=== PATIENT | female | born 1965 | race Two or more races ===

== ENCOUNTER 2023-04-22 07:55 | Inpatient (IN) | payer OTHER ==
[~2023-04-22] VITALS: Ht 167.6 cm; Wt 97.1 kg
[~2023-04-22 07:55] MED LIST: GLIMEPIRIDE4 MG
[2023-04-22] MEDS ORDERED: TOPROL XL25 M1 (09:08)
[2023-04-22] MEDS ORDERED: FEXMID7.5 MG (09:09)
[2023-04-22 11:01] LABS: HEMATOCRIT 35.5 % (36.0-45.00); HEMOGLOBIN 12.1 g/dL (12.0-15.00); MEAN CORPUSCULAR HEMOGLOBIN 30.8 pg (27.00-32.0); MEAN CORPUSCULAR HGB CONC 34.2 g/dl (32.0-36.0); PLATELET COUNT 154 K/uL (150-450); RED BLOOD COUNT 3.94 M/uL (4.00-6.00); RED CELL DISTRIBUTION WIDTH 13.5 % (11.5-14.5)
[2023-04-22 11:11] LABS: ALBUMIN 2.9 gm/dL (3.4-5.0); BILIRUBIN TOTAL 1.14 mg/dL (0.3-1.2); CALCIUM 9.2 mg/dL (8.5-10.1); CREATININE SERUM 0.71 mg/dL (0.55-1.02); GFR 84.55; GLOBULINA 5.4 G/DL (2.4-3.5); POTASSIUM 3.77 mEq/L (3.5-5.1); TOTAL PROTEIN 8.3 gm/dL (6.4-8.2)
[2023-04-22 12:09] LABS: PH,URINE 5.5 (5.0-8.0); URINE APPEARANCE Cloudy; URINE BILIRRUBIN Negative (NEGATIVE); URINE BLOOD Small; URINE COLOR Yellow; URINE LEUKOCYTE Moderate; URINE NITRATE Negative
[2023-04-22 12:13] LABS: URINE EPITHELIAL CELLS 18.5 uL (0.0-38.8); URINE RBC 8.2 uL (0.0-20.8); URINE WBC 1809.4 uL (0.0-23.2)
[2023-04-22 12:19] LABS: URINE BACTERIA > 9821.5 uL (0.0-1933); URINE GLUCOSE >=1000 MG/DL (NEGATIVE); URINE PROTEIN 100 (NEGATIVE)
[2023-04-22 18:58] LABS: ABG PH 7.465 (7.35-7.45); ABG pCO2 34.3 mmHg (35-45)
[2023-04-22 18:59] LABS: ABG PO2 52.4 mmHg (80-100); BICARBONATE 24.1 mmol/l (23-25); Tco2 25.2 mmol/l; allen test SATISFACTORY; o2 21 %; puncture site RADIAL LEFT
[2023-04-22 22:38] LABS: ABG PO2 118.2 mmHg (80-100); ABG pCO2 39.7 mmHg (35-45); BASE EXCESS 0.1 mmol/l; BICARBONATE 24.6 mmol/l (23-25); SaO2 98.6 %; Tco2 25.8 mmol/l; allen test SATISFACTORY; puncture site RADIAL LEFT
[2023-04-22 22:39] LABS: o2 50 %
[2023-04-22 23:19] LABS: D DIMER 0.88 MG/L; INR 1.2; PARTIAL THROMBOPLASTIN TIME 35.8 SECONDS (22.0-34.0); PROTHROMBIN TIME 12.4 SECONDS (9.0-11.5)
[2023-04-23 15:28] LABS: ALBUMIN 2.4 gm/dL (3.4-5.0); BILIRUBIN TOTAL 0.62 mg/dL (0.3-1.2); CALCIUM 8.5 mg/dL (8.5-10.1); CREATININE SERUM 0.9 mg/dL (0.55-1.02); GFR 64.31; GLOBULINA 4.4 G/DL (2.4-3.5); POTASSIUM 4.03 mEq/L (3.5-5.1); TOTAL PROTEIN 6.8 gm/dL (6.4-8.2)
[2023-04-25 07:18] LABS: HEMATOCRIT 33.8 % (36.0-45.00); HEMOGLOBIN 11.2 g/dL (12.0-15.00); MEAN CELL VOLUME 90.9 fL (80.00-100.00); MEAN CORPUSCULAR HEMOGLOBIN 30.1 pg (27.00-32.0); MEAN CORPUSCULAR HGB CONC 33.1 g/dl (32.0-36.0); RED BLOOD COUNT 3.72 M/uL (4.00-6.00); RED CELL DISTRIBUTION WIDTH 13.6 % (11.5-14.5)
[2023-04-25 07:19] LABS: CALCIUM 7.9 mg/dL (8.5-10.1); CREATININE SERUM 0.52 mg/dL (0.55-1.02); GFR 121.11; POTASSIUM 4.25 mEq/L (3.5-5.1)
[2023-04-25 08:01] LABS: PLATELET COUNT 192 K/uL (150-450)
[2023-04-26 06:27] LABS: HEMATOCRIT 34.8 % (36.0-45.00); HEMOGLOBIN 11.5 g/dL (12.0-15.00); MEAN CELL VOLUME 91.2 fL (80.00-100.00); MEAN CORPUSCULAR HGB CONC 32.9 g/dl (32.0-36.0); PLATELET COUNT 225 K/uL (150-450); RED BLOOD COUNT 3.82 M/uL (4.00-6.00); RED CELL DISTRIBUTION WIDTH 13.4 % (11.5-14.5)
[2023-04-26 07:06] LABS: ALBUMIN 1.9 gm/dL (3.4-5.0); BILIRUBIN TOTAL 0.56 mg/dL (0.3-1.2); CALCIUM 7.9 mg/dL (8.5-10.1); CREATININE SERUM 0.41 mg/dL (0.55-1.02); GFR 159.33; GLOBULINA 3.6 G/DL (2.4-3.5); POTASSIUM 4.4 mEq/L (3.5-5.1); TOTAL PROTEIN 5.5 gm/dL (6.4-8.2)
[2023-04-27 20:07] LABS: ABG PH 7.475 (7.35-7.45); ABG PO2 109.1 mmHg (80-100); ABG pCO2 39.7 mmHg (35-45); BASE EXCESS 4.7 mmol/l; BICARBONATE 28.6 mmol/l (23-25); SaO2 98.6 %; Tco2 29.8 mmol/l
[2023-04-27 20:08] LABS: allen test SATISFACTORY; o2 50 %; puncture site RADIAL RIGHT
[2023-05-01 06:49] LABS: HEMOGLOBIN 10.1 g/dL (12.0-15.00); MEAN CELL VOLUME 90.5 fL (80.00-100.00); MEAN CORPUSCULAR HEMOGLOBIN 30.6 pg (27.00-32.0); MEAN CORPUSCULAR HGB CONC 33.8 g/dl (32.0-36.0); PLATELET COUNT 237 K/uL (150-450); RED BLOOD COUNT 3.31 M/uL (4.00-6.00); RED CELL DISTRIBUTION WIDTH 13.4 % (11.5-14.5)
[2023-05-01 07:22] LABS: ALBUMIN 1.6 gm/dL (3.4-5.0); BILIRUBIN TOTAL 0.57 mg/dL (0.3-1.2); CREATININE SERUM 0.3 mg/dL (0.55-1.02); GFR 228.49; POTASSIUM 4.74 mEq/L (3.5-5.1); TOTAL PROTEIN 5.6 gm/dL (6.4-8.2)
[2023-05-08 06:12] LABS: HEMOGLOBIN 10.9 g/dL (12.0-15.00); MEAN CELL VOLUME 88.4 fL (80.00-100.00); MEAN CORPUSCULAR HEMOGLOBIN 30.1 pg (27.00-32.0); MEAN CORPUSCULAR HGB CONC 34.1 g/dl (32.0-36.0); PLATELET COUNT 441 K/uL (150-450); RED BLOOD COUNT 3.62 M/uL (4.00-6.00); RED CELL DISTRIBUTION WIDTH 12.7 % (11.5-14.5)
[2023-05-08 06:38] LABS: CALCIUM 8.6 mg/dL (8.5-10.1); CREATININE SERUM 0.46 mg/dL (0.55-1.02); GFR 139.52; POTASSIUM 4.63 mEq/L (3.5-5.1)
== END 2023-05-11 16:31 | disposition home or self-care (01) | DRG 871 ==
LOC: ER 07:55 → ICU-2 20:49 → ICU 20:49 → SURH 05-01 23:06
PROVIDERS: General Practice; Internal Medicine Infectious Disease; Internal Medicine Pulmonary Disease; Student in an Organized Health Care Education/Training Program; ADMIT Internal Medicine; ATTEND Internal Medicine
PROC: BW21YZZ Computerized Tomography (CT Scan) of Abdomen and Pelvis using Other Contrast (ICD-10-PCS; 2023-04-22)
PROC: BW24ZZZ Computerized Tomography (CT Scan) of Chest and Abdomen (ICD-10-PCS; 2023-04-22)
PROC: BW24YZZ Computerized Tomography (CT Scan) of Chest and Abdomen using Other Contrast (ICD-10-PCS; 2023-04-26)
PROC: BW24YZZ Computerized Tomography (CT Scan) of Chest and Abdomen using Other Contrast (ICD-10-PCS; 2023-05-07)
PROC: 02HV33Z Insertion of Infusion Device into Superior Vena Cava, Percutaneous Approach (ICD-10-PCS; 2023-05-07)
PROC: 0W9B30Z Drainage of Left Pleural Cavity with Drainage Device, Percutaneous Approach (ICD-10-PCS; principal; 2023-05-08)
DX: A41.9 Sepsis, unspecified organism (principal); J18.9 Pneumonia, unspecified organism; N39.0 Urinary tract infection, site not specified; J90 Pleural effusion, not elsewhere classified; R06.02 Shortness of breath; R09.02 Hypoxemia; J98.01 Acute bronchospasm; R65.20 Severe sepsis without septic shock; I10 Essential (primary) hypertension; B96.20 Unspecified Escherichia coli [E. coli] as the cause of diseases classified elsewhere; E11.9 Type 2 diabetes mellitus without complications; Z79.4 Long term (current) use of insulin